=== PATIENT | female | born 1965 | race Caucasian/White ===

== ENCOUNTER 2017-10-16 11:06 | Emergency (ER) | payer BC, OTHER ==
[~2017-10-16] VITALS: Ht 165.1 cm; Wt 85.3 kg
[2017-10-16 11:42] LABS: BASOPHIL (%) 0.5 % (0-1); EOSINOPHIL (%) 1.2 % (0-5); EOSINOPHIL COUNT 0.1 K/uL (0-0.3); HEMATOCRIT 39.9 % (36.0-46.0); HEMOGLOBIN 12.3 G/DL (11.9-15.5); IMMATURE GRANULOCYTE (%) 0.6 % (0.0-0.7); LYMPHOCYTE (%) 31.3 % (15-42); LYMPHOCYTE COUNT 2.6 K/uL (1.0-2.8); MCH 25.8 PG (29.0-34.0); MCHC 30.8 G/DL (30.0-36.0); MCV 83.6 FL (83-99); MONOCYTE (%) 6.2 % (3-12); MONOCYTE COUNT 0.5 K/uL (0-0.8); NEUTROPHIL (%) 60.2 % (45-76); NEUTROPHIL COUNT 5.1 K/uL (1.8-6.4); PLATELET COUNT 315 K/uL (156-360); RBC DIS.WIDTH-CV 15.9 % (11.8-14.6); RBC DIS.WIDTH-SD 46.9 % (39-53); RED BLOOD COUNT 4.77 M/uL (3.80-5.20); WHITE BLOOD COUNT 8.4 K/uL (4.1-10.2)
[2017-10-16 11:53] LABS: CHLORIDE 106 mEq/L (99-109); POTASSIUM 3.8 mEq/L (3.7-5.4); SODIUM 135 mEq/L (136-147)
[2017-10-16 11:54] LABS: GLUCOSE 66 mg/dL (70-99)
[2017-10-16 11:58] LABS: CREATININE 1.2 mg/dL (0.6-1.3); GFR ESTIMATE (CALCULATED) 51 mL/min/
[2017-10-16 11:59] LABS: UREA NITROGEN (BUN) 24 mg/dL (9-23)
[2017-10-16 12:05] LABS: TROP-I INTERPRETATION NEGATIVE; TROPONIN-I < 0.01 ng/mL (0.0-0.30)
[2017-10-16 13:10] LABS: THYROTROPIN (TSH) 2.1 MIU/L (0.4-5.5)
[2017-10-16 13:48] LABS: TROP-I INTERPRETATION NEGATIVE; TROPONIN-I < 0.01 ng/mL (0.0-0.30)
[2017-10-16] MEDS ORDERED: TYLENOL WITH C1 EACH PO (13:58)
[2017-10-16 14:15] VITALS: BP 109/83
== END 2017-10-16 14:16 | disposition home or self-care (01) ==
LOC: EME 11:06
PROVIDERS: Emergency Medicine
DX: R07.89 Other chest pain (principal); M94.0 Chondrocostal junction syndrome [Tietze]; R09.89 Other specified symptoms and signs involving the circulatory and respiratory systems; R13.10 Dysphagia, unspecified
CPT/HCPCS: 71045; 80048; 84443; 84484; 85025; 93005; 99281; 99285; J2270

== ENCOUNTER → 2017-11-22 | Outpatient (CLI) | payer BC, OTHER ==
[~2017-11-22] VITALS: Ht 166.4 cm; Wt 89.8 kg
[~2017-11-22] MED LIST: ATORVASTATIN CA20 MG PO; BENTYL20 MG PO; CYANOCOBALAM1000 MCG PO; CYMBALTA60 MG PO; DITROPAN XL15 MG PO; DUONEB 2.5-0.5 M3 ML AEROSOL; FLONASE16 G1 BOTH NARES; LAMICTAL150 M1 PO; MEDROL4 MG PO; METFORMIN HCL500 MG PO; MIRALAX17 GM PO; OMEPRAZOLE40 M1 PO; PROMETHAZINE HC25 M1 PO; RANITIDINE HCL300 MG PO; SINGULAIR10 MG PO; SPIRIVA RESPIMAT4 G1 IH; SYNTHROID200 MCG PO; TOPIRAMATE ER100 MG PO; TYLENOL WITH C1 EACH PO; VITAMIN D32000 UNI1 PO
== END | disposition home or self-care (01) ==
LOC: AMB 13:29
PROVIDERS: Internal Medicine
PROC: 0DB68ZX Excision of Stomach, Via Natural or Artificial Opening Endoscopic, Diagnostic (ICD-10-PCS; principal; 2017-11-22)
DX: K28.9 Gastrojejunal ulcer, unspecified as acute or chronic, without hemorrhage or perforation (principal); K44.9 Diaphragmatic hernia without obstruction or gangrene; K21.9 Gastro-esophageal reflux disease without esophagitis; J45.909 Unspecified asthma, uncomplicated; E03.9 Hypothyroidism, unspecified; I45.10 Unspecified right bundle-branch block; Z98.84 Bariatric surgery status; Z88.2 Allergy status to sulfonamides
CPT/HCPCS: 82948; 88108; 88305; 88312; 88342 TC; 94640; J2250

== ENCOUNTER → 2017-12-05 | Outpatient (CLI) | payer BC, OTHER | END | disposition home or self-care (01) | DX: R13.10 Dysphagia, unspecified (principal); K21.9 Gastro-esophageal reflux disease without esophagitis | CPT/HCPCS: 92611 GN; G8996 GN; G8997 GN; G8998 GN ==

== ENCOUNTER 2018-01-24 05:49 | Day surgery (SDC) | payer BC ==
[~2018-01-24] VITALS: Ht 165.1 cm; Wt 96.2 kg
[~2018-01-24 05:49] MED LIST changes: +VENTOLIN HFA18 GM IH
[2018-01-24 06:11] VITALS: BP 112/60
[2018-01-24] MEDS ORDERED: PERCOCET 5/31 TABLET PO (09:35)
[2018-01-24 11:22] VITALS: BP 122/64
[2018-01-24 12:12] VITALS: BP 104/58
== END 2018-01-24 12:45 | disposition home or self-care (01) ==
LOC: SDC 05:49
DX: K80.10 Calculus of gallbladder with chronic cholecystitis without obstruction (principal); Z98.84 Bariatric surgery status; E03.9 Hypothyroidism, unspecified; K21.9 Gastro-esophageal reflux disease without esophagitis; J45.909 Unspecified asthma, uncomplicated; R00.1 Bradycardia, unspecified
CPT/HCPCS: 87641; 88304; J0330; J1100; J1170; J2405; J2710; J3010; J7643; Q0175; S0020